=== PATIENT | male | born 1990 | race Two or more races ===

== ENCOUNTER 2020-02-04 13:43 | Emergency (ER) | payer BC, OTHER ==
[~2020-02-04] VITALS: Ht 180.3 cm; Wt 111.1 kg
[2020-02-04 16:29] VITALS: BP 155/94
== END 2020-02-04 16:54 | disposition home or self-care (01) ==
LOC: ER 13:43
DX: J02.8 Acute pharyngitis due to other specified organisms (principal); Z88.0 Allergy status to penicillin; Z20.828 Contact with and (suspected) exposure to other viral communicable diseases
CPT/HCPCS: 36415; 87426